=== PATIENT | male | born 1995 | race Two or more races ===

== ENCOUNTER 2017-01-16 20:18 | Emergency (ER) | payer OTHER ==
[2017-01-16 20:23] VITALS: O2SAT 96
--- NOTE | 2017-01-16 20:38 | EDPHY ---
HPI/HX/ROS/PE/MDM Narrative: CHIEF COMPLAINT: Worse knee pain, fever. HPI: The patient is a 21-year-old male who fractured his left patella 5 days ago who presents with increasing left knee pain, fever, and loss of appetite. He was seen initially at [facility] and splinted there. He visited Dr. Sanchez, orthopedics, on Tuesday and is due to go back in two weeks. He has been unable to walk at all and the pain is causing him to lose his appetite. The pain does not radiate up or down his leg. His family reports he had a fever of 105 orally. He denies vomiting, diarrhea, or other complaints. He has been taking Oxycodone for the pain to little effect. REVIEW OF SYSTEMS: Aside from elements discussed in the HPI, a comprehensive 10-point review of systems was reviewed and is negative. PMH: Denies. SOCIAL HISTORY: Nonsmoker. PHYSICAL EXAM: General: Patient is alert, in no acute distress. ENT: Eyes are normal to inspection. ENT inspection normal. Neck: Normal inspection. Full range of motion. Respiratory: No respiratory distress. Breath sounds normal bilaterally. Cardiovascular: Regular rate and rhythm. Strong peripheral pulses. Abdomen: The abdomen is nontender to palpation. There are no peritoneal signs. There are normal bowel sounds. Back: Normal to inspection. No tenderness to palpation. Skin: Normal color. No rash. Warm and dry. Extremities: Normal appearance. Left knee splinted. Neuro: Oriented x3. Normal motor function. Normal sensory function. Portions of this note were transcribed by an ED scribe. I personally performed the history, physical exam, and medical decision making; and confirm the accuracy of the information in the transcribed note. ED Course: Left knee x-ray ordered. Study: Left knee x-ray Indication: Trauma, pain Results: I viewed the images myself on the PACS system. My interpretation of the images is: patella fracture. The radiologist interpretation is pending at the time of this dictation. MDM: This patient presents with continued knee pain after recently diagnosed patellar fracture. On exam, there is no evidence of infectious process and certainly no evidence of compartment syndrome. The patient is in a very substandard phone brace and this was replaced with a real knee immobilizer which I suspect will likely help with mobilization. Patient already has been seen by an orthopedist and has occupational therapy follow-up already scheduled. He is currently taking Percocet which she states makes his appetite very poor and barely helps his pain, so I do not think further doses of this will be helpful. I did give him a shot of Toradol for additional pain relief. Repeat x-ray here in the emergency department does not show any additional injury. - Data Points Medications Given: Discontinued Medications Ketorolac Tromethamine (Toradol) 60 mg IM EDNOW ONE Stop: 01/16/17 20:43 Last Admin: 01/16/17 20:50 Dose: 60 mg General Time Seen by Provider: 01/16/17 20:32 Initial Vital Signs: Initial Vital Signs Temperature (C) 36.7 C 01/16/17 20:19 Heart Rate 97 01/16/17 20:19 Respiratory Rate 18 01/16/17 20:19 Blood Pressure 156/102 H 01/16/17 20:19 O2 Sat (%) 96 01/16/17 20:19 O2 Delivery Mode Room Air Allergies/Adverse Reactions: No Known Allergies Allergy (Verified 06/02/16 20:44) Home Medications: Medication Instructions Recorded Percocet 5-325 mg Tablet 01/16/17 Departure - Departure Disposition: Home, Routine, Self-Care Clinical Impression: Patella fracture, Knee pain Condition: Good Instructions: Patellar Fracture (ED) Additional Instructions: Follow up with your orthopedist as scheduled. Take Ibuprofen 600mg three times daily for pain. Return to the emergency department for any serious worsening of condition. Referrals: Tevin Sanchez MD [Medical Doctor] - As per Instructions Report Scribed for: Leonard Segundo Report Scribed by: Shant Galvan Date of Report: 01/16/17 Time of Report: 20:38
[2017-01-16] MEDS ORDERED: KETOROLAC 30 MG/1 ML SDV IM ONE (20:42)
[2017-01-16 21:53] VITALS: BP 129/78; PULSE 80; RESP 16; TEMP 98.4
== END 2017-01-16 21:53 | disposition home or self-care (01) ==
DX: S82.002A Unspecified fracture of left patella, initial encounter for closed fracture (principal); X58.XXXA Exposure to other specified factors, initial encounter
CPT/HCPCS: J1885